=== PATIENT | female | born 1980 | race Caucasian/White ===

== ENCOUNTER 2016-12-03 14:32 | Day surgery (SDC) | payer OTHER ==
[2016-12-03] VITALS (8 sets, daily range): BP systolic 98–126; BP diastolic 56–69; PULSE 78–88; RESP 13–18; Ht 160 cm; Wt 75.4 kg
[~2016-12-03] VITALS: Ht 160 cm; Wt 75.4 kg
[~2016-12-03 14:32] MED LIST: CEFAZOLIN 1 GM INJ ONE
[2016-12-03] MEDS ORDERED: ATOR40TA68 PO (15:26)
--- NOTE | 2016-12-03 18:00 | HPN ---
Date/Time of Note Date/Time of Note DATE: 12/03/16 TIME: 18:00 Interval H&P Admission Note Pt. seen H&P reviewed: No system changes SUKHWINDER JOHN Dec 03, 2016 18:00
[2016-12-03] MEDS ORDERED: METOCLOPRAMIDE 10 MG INJ ONE (18:22)
[2016-12-03] MEDS ORDERED: LIDOCAINE 2% (SDV) 5 ML INJ ONE (18:22)
[2016-12-03] MEDS ORDERED: MEPERIDINE 100 MG INJ ONE (18:22)
[2016-12-03] MEDS ORDERED: PROPOFOL 20 ML ONE (18:22)
[2016-12-03] MEDS ORDERED: ONDANSETRON 4 MG INJ ONE (18:22)
[2016-12-03] MEDS ORDERED: MIDAZOLAM 1 MG/ML 2 ML INJ IV PRN (18:30)
[2016-12-03] MEDS ORDERED: METOCLOPRAMIDE 10 MG INJ IV PRN (18:30)
[2016-12-03] MEDS ORDERED: morphine (1 MG/ML) 10ML SYRINGE IV PRN ×3 (18:30)
[2016-12-03] MEDS ORDERED: FENTAnyl 50 MCG/ML VIAL IV PRN ×3 (18:30)
[2016-12-03] MEDS ORDERED: OXYCODONE/ACETAMINOPHEN (5/325) TAB PO PRN ×2 (18:30)
[2016-12-03] MEDS ORDERED: MEPERIDINE 25 MG INJ IV PRN (18:30)
[2016-12-03] MEDS ORDERED: DIPHENHYDRAMINE 50 MG INJ IV PRN (18:30)
[2016-12-03] MEDS ORDERED: ONDANSETRON 4 MG INJ IV PRN (18:30)
[2016-12-03] MEDS ORDERED: BUPIVACAINE 0.5% (SDV) 30 ML INJ ONE (18:56)
[2016-12-03] MEDS ORDERED: BUPIVACAINE 0.5% (MPF) 30 ML INJ EPI ONE (19:08)
[2016-12-03] MEDS ORDERED: HYDROCODONE/APAP (5/325) TAB PO PRN (20:00)
--- NOTE | 2016-12-08 12:18 | OPR ---
DATE OF OPERATION: 12/03/2016 SURGEON: Mahin Wasserman MD. ANESTHESIA: General. PREOPERATIVE DIAGNOSIS: Left wrist dorsal ganglion. POSTOPERATIVE DIAGNOSIS: Left wrist dorsal ganglion. PROCEDURE: Excision of left wrist dorsal ganglion. OPERATIVE FINDINGS: Left wrist dorsal ganglion from the scapholunate ligament. INDICATION: This is a 35-year-old female with longstanding left wrist pain. She attempted conservative management, but had persistent pain and cyst and elected to proceed with surgical excision, understanding the risks and benefits. DESCRIPTION PROCEDURE: The patient was seen in the preoperative area. All further questions were answered. Again, she gave informed consent, understanding the risks and benefits. The patient was taken to the operative suite, placed in supine position. She was placed under general anesthesia and 2 grams Ancef IV given. Tourniquet was placed on left upper extremity, and left upper extremity was prepped with ChloraPrep stick and draped in the usual sterile fashion. Esmarch bandage was used to exsanguinate the extremity and tourniquet inflated to 250 mmHg. A transverse incision along Shane's lines was utilized over the dorsal wrist crease with sharp dissection carried down through skin and subcutaneous tissue. Scissor dissection revealed the extensor retinaculum and the EPL sheath was incised and the EPL tendon retracted. The EPL tendon and second dorsal compartment was retracted radially and the fourth dorsal compartment retracted ulnarly. The cyst was visualized, and the capsule overlying it was incised. The cyst was traced down to the scapholunate ligament and was excised with a small portion of capsule. There was some synovitis within the dorsal wrist, as well as the area of the cyst origin, which was bovied with Bovie electrocautery. The scapholunate ligament itself appeared intact and was stable. The cyst was fully excised and sent off as specimen. Wound was copiously irrigated and skin closed with 5-0 nylon. Xeroform placed over the wound followed by sterile gauze, Webril, and a short-arm splint. Tourniquet deflated after 14 minutes. The patient was awakened from anesthesia. She was taken to the postoperative suite in stable condition and tolerated the procedure well without complication. SPECIMENS: Left wrist cyst. ESTIMATED BLOOD LOSS: Five mL. SPONGE, INSTRUMENT, NEEDLE COUNTS: Correct. TOURNIQUET TIME: 14 minutes. CONDITION ON DISCHARGE: Stable. Dictated By: Mahin Wasserman MD /claire/destiny /Document#: [id number]
== END 2016-12-03 20:21 | disposition home or self-care (01) ==
LOC: SDS 14:32
PROVIDERS: ATTEND Orthopaedic Surgery Hand Surgery
DX: M67.432 Ganglion, left wrist (principal); E78.5 Hyperlipidemia, unspecified; E66.9 Obesity, unspecified; Z68.29 Body mass index [BMI] 29.0-29.9, adult
CPT/HCPCS: 25111; J0690; J2175; J2405; J2765; Z7512; Z7610; 88304